=== PATIENT | female | born 1985 | race Caucasian/White ===

== ENCOUNTER 2016-09-15 22:09 | Emergency (ER) | payer OTHER ==
[~2016-09-15] VITALS: Ht 167.6 cm; Wt 72.6 kg
[2016-09-15 22:54] LABS: ABSOLUTE BASOPHIL COUNT 0 /CUMM (0.0-0.2); ABSOLUTE EOSINOPHIL COUNT 0.3 /CUMM (0.0-0.7); ABSOLUTE GRANULOCYTE CT 3.4 /CUMM (1.4-6.5); ABSOLUTE LYMPH COUNT 2.1 /CUMM (1.2-3.4); ABSOLUTE MONOCYTE COUNT 0.6 /CUMM (0.10-0.60); BASOPHIL % 0.6 % (0.0-2.0); EOSINOPHIL % 5.2 % (0-5); HEMATOCRIT 40.6 % (37-47); MEAN CORPUSCULAR HGB 28.2 PG (27.0-31.0); MEAN CORPUSCULAR HGB CONC 33.6 G/DL (33.0-37.0); MEAN PLATELET VOLUME 9.1 FL (7.4-10.4); PLATELET COUNT 286 /CUMM (130-400); RBC DISTRIBUTION WIDTH 12.3 % (11.5-14.5); RED BLOOD CELL CT 4.83 /CUMM (4.20-5.40); WHITE BLOOD CELL COUNT 6.6 /CUMM (4.8-10.8)
--- NOTE | 2016-09-15 23:04 | ED CARDIAC/CP/PALPITATIONS ---
History of Present Illness General Chief Complaint: Chest Pain Stated Complaint: CHEST PAIN, HIGH PULSE PER PT X 3DAYS Source: patient Exam Limitations: no limitations Vital Signs & Intake/Output Vital Signs & Intake/Output Vital Signs Date Time Temp Pulse Resp B/P Pulse O2 O2 Flow FiO2 Ox Delivery Rate 09/15 2338 69 09/15 2223 97.9 102 15 159/99 100 Room Air ED Intake and Output 09/16 0000 09/15 1200 Intake Total 100 Output Total Balance 100 Intake, IV 100 Patient 160 lb Weight Allergies Coded Allergies: No Known Allergies (09/15/16) Triage Note: PT TO ED FOR CHEST PRESSURE, HTN, FATIGUE X 3 DAYS. Triage Nurses Notes Reviewed? yes Onset: Abrupt Duration: day(s): (3) Timing: multiple episodes today Quality/Severity: moderate, pressure Location: central Radiation: no radiation Activities at Onset: none Associated Symptoms: FATIGUE, ELEVATED BP : No Patient currently breastfeeds: No HPI: 30 year old female presents to the ER for chief complaint of HTN, chest pain and fatigue for the past 3 days. Symptoms have been constant. Past History Travel History Traveled to [place] past 21 day No Medical History Any Pertinent Medical History? see below for history Neurological: NONE EENT: NONE Cardiovascular: NONE Respiratory: NONE Gastrointestinal: NONE Hepatic: NONE Renal: NONE Musculoskeletal: NONE Psychiatric: OPIATE ABUSE Endocrine: NONE Blood Disorders: NONE Cancer(s): NONE Surgical History Surgical History: non-contributory Psychosocial History What is your primary language Moroccan Tobacco Use: Current Daily Use Daily Tobacco Use Amount/Type: => 5 Cigarettes daily ETOH Use: occasional use Illicit Drug Use: denies illicit drug use Family History Comment: DC, CEREBRAL ANEURYSM, TIA Hx Contributory? Yes Review of Systems Review of Systems Constitutional: Reports: malaise. Denies: chills, fever. EENTM: Reports: no symptoms. Respiratory: Denies: cough, short of breath, sputum production. Cardiovascular: Reports: chest pain. GI: Denies: abdominal pain. Genitourinary: Reports: no symptoms. Musculoskeletal: Reports: no symptoms. Skin: Reports: no symptoms. Neurological/Psychological: Reports: cognitive dysfunction, headache. Hematologic/Endocrine: Denies: bruising, bleeding, polyuria, polydipsia. Immunologic/Allergic: Reports: no symptoms. All Other Systems: Reviewed and Negative Physical Exam Physical Exam General Appearance: well developed/nourished, alert, awake Head: atraumatic, normal appearance Eyes: Bilateral: normal appearance, PERRL, EOMI. Ears, Nose, Throat: normal pharynx, normal ENT inspection, hearing grossly normal Neck: normal inspection, supple, full range of motion Respiratory: normal breath sounds, chest non-tender, no respiratory distress Cardiovascular: regular rate/rhythm Peripheral Pulses: 2+ radial (R), 1+ ulnar (L) Gastrointestinal: normal bowel sounds, soft, non-tender Back: normal inspection, normal range of motion Extremities: normal inspection, normal capillary refill, normal range of motion, no edema Neurologic/Psych: no motor/sensory deficits, awake, alert, oriented x 3 Skin: intact, normal color, warm/dry Core Measures ACS in differential dx? Yes ASA ordered for poss ACS? No-ACS ruled out Severe Sepsis Present: No Septic Shock Present: No Progress Differential Diagnosis: AMI, myocarditis, pericarditis, PSVT, pulmonary embolism , unstable angina, ANXIETY, PANIC Plan of Care: Orders Procedure Date/time Status Add-on Test (ER Only) 09/15 2318 Active THYROID STIMULATING HORMONE 09/15 2229 Complete FREE T4 09/15 2229 Complete D-DIMER 09/15 2229 Complete CREATINE PHOSPHOKINASE 09/15 2229 Complete TROPONIN LEVEL 09/16 2223 Complete HUMAN BETA HCG SCREEN 09/16 2223 Complete COMPREHENSIVE METABOLIC PANEL 09/16 2223 Complete CBC WITHOUT DIFFERENTIAL 09/16 2223 Complete EKG 09/15 221 Active Laboratory Tests 09/15/16 2230: Anion Gap 12, Estimated GFR > 60, BUN/Creatinine Ratio 14.3, Glucose 124 H, Calcium 9.8, Total Bilirubin 0.6, AST 24, ALT 32, Alkaline Phosphatase 56, Creatine Kinase 114, Troponin I < 0.01, Total Protein 7.1, Albumin 4.3, Globulin 2.8, Albumin/Globulin Ratio 1.5, TSH 2.430, Free T4 1.26, Total Beta HCG NEGATIVE, D-Dimer < 200, CBC w Diff NO MAN DIFF REQ, RBC 4.83, MCV 84.0, MCH 28.2, RDW 12.3, MPV 9.1, Gran % 52.0, Lymphocytes % 32.6, Monocytes % 9.6 H, Eosinophils % 5.2 H, Basophils % 0.6, Absolute Granulocytes 3.4, Absolute Lymphocytes 2.1, Absolute Monocytes 0.6, Absolute Eosinophils 0.3, Absolute Basophils 0, PUBS MCHC 33.6 ekg, labs, troponin, d-dimer negative. thyroid functions wnl. improved during ED visit after IV tylenol. She will follow up with her primary care doctor in the office. Discussed which symptoms to return to the ED with. (IAM RIZZO,ANNA) Initial ED EKG: sinus tachycardia 102 bpm Departure Departure Time of Disposition: 9 Disposition: HOME OR SELF CARE Condition: Stable Clinical Impression Primary Impression: Chest pain Referrals: DENI RIZZO,SHARMILA Santos (PCP/Family) Additional Instructions: Please follow-up with your primary care doctor in the office. Monitor your blood pressure at home. Do not smoke while taking control pills. Return to the ER for any changing or worsening symptoms. Departure Forms: Customer Survey General Discharge Information Critical Care Note Critical Care Note Critical Care Time: non-applicable
[2016-09-16 00:27] VITALS: BP 129/77
== END 2016-09-16 00:29 ==
LOC: ERH 22:09
PROVIDERS: Emergency Medicine
DX: R07.89 Other chest pain (principal)
CPT/HCPCS: 93005; 93010; 96365; J0131